=== PATIENT | male | born 1960 | race American Indian/Alaskan Native ===

== ENCOUNTER 2017-04-25 20:18 | Emergency (ER) | payer BC ==
[2017-04-25 20:20] VITALS: BMI 45.4
[2017-04-25 22:55] VITALS: BP 140/82; PULSE 74; RESP 16; TEMP 98.3; O2SAT 99
[2017-04-25] MEDS ORDERED: TDAP Vaccine 0.5 mL Syr IM ONE (23:34)
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
== END 2017-04-26 00:47 | disposition home or self-care (01) ==
LOC: ED 20:18
DX: S51.811A Laceration without foreign body of right forearm, initial encounter (principal); S21.211A Laceration without foreign body of right back wall of thorax without penetration into thoracic cavity, initial encounter; S41.112A Laceration without foreign body of left upper arm, initial encounter; S41.111A Laceration without foreign body of right upper arm, initial encounter; X99.8XXA Assault by other sharp object, initial encounter; Y92.410 Unspecified street and highway as the place of occurrence of the external cause; Z23 Encounter for immunization